=== PATIENT | female | born 1940 | race Caucasian/White ===

== ENCOUNTER 2016-05-06 07:17 | Inpatient (IN) | payer MEDICARE, OTHER ==
[2016-05-06] MEDS ORDERED: MORPHINE SULFATE 4 MG INJ IV ONE (07:54)
[2016-05-06] MEDS ORDERED: Sodium Chloride 0.9% 1000 ML 1,000 ML IV STA (07:54)
[2016-05-06] MEDS ORDERED: Zofran 4 MG/2 ML VIAL IV ONE (07:54)
[2016-05-06] MEDS ORDERED: MORPHINE SULFATE 4 MG INJ ONE (07:58)
[2016-05-06] MEDS ORDERED: Sodium Chloride 0.9% 1000 ML 1,000 ML ONE (07:58)
[2016-05-06] MEDS ORDERED: Zofran 4 MG/2 ML VIAL ONE (07:58)
[2016-05-06 08:03] LABS: Collection Type VOID
[2016-05-06 08:04] LABS: COMPLETE URINE MICROSCOPIC? YES
[2016-05-06 08:05] LABS: BASOPHIL % 0.1 % (0.0-0.4); Eosinophil % 0.1 % (0.00-5.0); Granulocytes % 73.7 % (36.0-66.0); Lymphocytes % 19.8 % (24.0-44.0); Mean Cell Volume 84.3 fl (78-100); Mean Corpuscular Hemoglobin 28.3 pg (26-32); Mean Platelet Volume 10.5 fl (6-9.5); Monocytes % 6.3 % (0.0-12.0); Platelet Count 244 K/mm3 (150-450); Red Blood Count 5.02 M/mm3 (4.1-5.4); White Blood Count 8.5 K/mm3 (4.0-10.5)
--- NOTE | 2016-05-06 08:12 | ERPHSYRPT ---
- History of Present Illness Time Seen by Provider: 05/06/16 08:09 Historian: patient Exam Limitations: no limitations Patient Subjective Stated Complaint: right flank pain since 1429 yesterday Triage Nursing Assessment: ambulated to room per self holding right flank area. skin w/d, color normal. denies any difficulty urinating, denies any bowel problems. Physician History: right flank pain since 1429 yesterday Timing/Duration: today Activities at Onset: none Quality: cramping, fullness Abdominal Pain Onset Location: flank Pain Radiation: RLQ Severity of Pain-Max: severe Severity of Pain-Current: severe Modifying Factors: Improves With: nothing Associated Symptoms: denies symptoms Previous symptoms: no prior history Allergies/Adverse Reactions: No Known Drug Allergies Allergy (Unverified 05/06/16 07:29) Home Medications: Enalapril Maleate [Vasotec] 20 mg PO BID 05/06/16 [History] Flaxseed Oil [[place]-3 Flaxseed Oil] 1,300 mg PO DAILY 05/06/16 [History] Folic Acid/Mv,Fe,Other Min [One Daily For Women Tablet] 1 each PO DAILY [History] Hydrochlorothiazide 12.5 mg PO DAILY 05/06/16 [History] Krill/Om-3/Dha/Epa/Phospho/Ast [Krill Oil 500 mg Softgel] 1 each PO DAILY [History] Metoprolol Succinate 50 mg [Toprol Xl 50 MG] 50 mg PO DAILY 05/06/16 [ History] Omeprazole 20 MG [Prilosec 20 mg] 20 mg PO DAILY 05/06/16 [History] Hx Tetanus, Diphtheria Vaccination/Date Given: No Hx Influenza Vaccination/Date Given: No Hx Pneumococcal Vaccination/Date Given: Yes - Review of Systems Constitutional: No Fever, No Chills Eyes: No Symptoms Ears, Nose, & Throat: No Symptoms Respiratory: No Cough, No Dyspnea Cardiac: No Chest Pain, No Edema, No Syncope Abdominal/Gastrointestinal: Abdominal Pain, No Nausea, No Vomiting, No Diarrhea Genitourinary Symptoms: No Dysuria, No Frequency Musculoskeletal: No Back Pain, No Neck Pain Skin: No Rash Neurological: No Dizziness, No Focal Weakness, No Sensory Changes Psychological: No Symptoms Endocrine: No Symptoms All Other Systems: Reviewed and Negative - Past Medical History Pertinent Past Medical History: Yes Cardiac History: Hypertension GI Medical History: GERD, Hernia Female Reproductive Disorders: Abnormal Uterine Bleeding, Breast Cancer - Past Surgical History Past Surgical History: Yes Female Surgical History: Hysterectomy, Other Other Surgical History: lumpectomy right breast - Social History Smoking Status: Never smoker Exposure to second hand smoke: No Drug Use: none Patient Lives Alone: Yes - Nursing Vital Signs Nursing Vital Signs: Initial Vital Signs Temperature 97.6 F Temperature Source Oral Pulse Rate 82 Respiratory Rate 20 Blood Pressure [Right Arm] 163/88 Pain Intensity 10 - Physical Exam General Appearance: no apparent distress, alert Eye Exam: PERRL/EOMI, eyes nml inspection Ears, Nose, Throat Exam: normal ENT inspection, pharynx normal, moist mucous membranes Neck Exam: normal inspection, non-tender, supple, full range of motion Respiratory Exam: normal breath sounds, lungs clear, No respiratory distress Cardiovascular Exam: regular rate/rhythm, normal heart sounds Gastrointestinal/Abdomen Exam: soft, tenderness (right flank), No mass Back Exam: normal inspection, normal range of motion, No CVA tenderness, No vertebral tenderness Extremity Exam: normal inspection, normal range of motion, pelvis stable Neurologic Exam: alert, oriented x 3, cooperative, normal mood/affect, nml cerebellar function, sensation nml, No motor deficits Skin Exam: normal color, warm, dry SpO2: 95 Oxygen Delivery: Room Air - Course Nursing assessment & vital signs reviewed: Yes Ordered Tests: Active Orders 24 hr Category Date Time Status IV Insertion STAT Care 05/06/16 07:36 Active AMYLASE Stat Lab 05/06/16 07:58 Completed CBC W DIFF Stat Lab 05/06/16 07:58 Completed CMP Stat Lab 05/06/16 07:58 Completed Lactic Acid Urgent Lab 05/06/16 07:54 Completed UA W/ MICROSCOPIC Stat Lab 05/06/16 07:58 Completed Medication Summary Generic Name Dose Route Start Last Admin Trade Name Freq PRN Reason Stop Dose Admin Sodium Chloride 1,000 mls @ 999 mls/hr 05/06/16 07:54 05/06/16 08:01 Sodium Chloride 0.9% 1000 Ml IV 05/06/16 08:54 999 mls/hr .Q1H1M STA Administration Discontinued Medications Generic Name Dose Route Start Last Admin Trade Name Freq PRN Reason Stop Dose Admin Sodium Chloride Confirm 05/06/16 07:58 Sodium Chloride 0.9% 1000 Ml Administered 05/06/16 07:59 Dose 1,000 mls @ ud .ROUTE .STK-MED ONE Morphine Sulfate 4 mg 05/06/16 07:54 05/06/16 08:01 Morphine Sulfate 4 Mg Inj IV 05/06/16 07:55 4 mg STAT ONE Administration Morphine Sulfate Confirm 05/06/16 07:58 Morphine Sulfate 4 Mg Inj Administered 05/06/16 07:59 Dose 4 mg .ROUTE .STK-MED ONE Ondansetron HCl 4 mg 05/06/16 07:54 05/06/16 08:01 Zofran 4 Mg/2 Ml Vial IV 05/06/16 07:55 4 mg STAT ONE Administration Ondansetron HCl Confirm 05/06/16 07:58 Zofran 4 Mg/2 Ml Vial Administered 05/06/16 07:59 Dose 4 mg .ROUTE .STK-MED ONE Lab/Rad Data: Laboratory Result Diagrams 05/06/16 07:58 05/06/16 07:58 Laboratory Results 05/06/16 05/06/16 05/06/16 Range/Units 07:58 07:58 07:58 WBC 8.5 (4.0-10.5) K/mm3 RBC 5.02 (4.1-5.4) M/mm3 Hgb 14.2 (12.0-16.0) gm/dl Hct 42.3 (35-47) % MCV 84.3 (78-100) fl MCH 28.3 (26-32) pg MCHC 33.6 (32-36) g/dl RDW 14.0 (11.5-14.0) % Plt Count 244 (150-450) K/mm3 MPV 10.5 H (6-9.5) fl Gran % 73.7 H (36.0-66.0) % Lymphocytes % 19.8 L (24.0-44.0) % Monocytes % 6.3 (0.0-12.0) % Eosinophils % 0.1 (0.00-5.0) % Basophils % 0.1 (0.0-0.4) % Basophils # 0.01 (0-0.4) Sodium 135 L (136-145) mEq/L Potassium 3.6 (3.5-5.1) mEq/L Chloride 96 L (98-107) mEq/L Carbon Dioxide 25.6 (21-32) mEq/L Anion Gap 17.0 H (5-15) MEQ/L BUN 17 (9-20) mg/dL Creatinine 0.75 (0.55-1.30) mg/dl Estimated GFR > 60 ML/MIN Glucose 185 H (70-110) MG/DL Lactic Acid (0.4-2.0) Calcium 9.4 (8.5-10.1) mg/dL Total Bilirubin 1.0 (0.2-1.0) mg/dL AST 18 (15-37) U/L ALT 25 (12-78) U/L Alkaline Phosphatase 106 (46-116) U/L Serum Total Protein 7.8 (6.4-8.2) gm/dL Albumin 4.4 (3.4-5.0) g/dL Amylase 43 (25-115) U/L Ur Collection Type VOID Urine Color YELLOW (YELLOW) Urine Appearance CLEAR (CLEAR) Urine pH 7.0 (5-6) Ur Specific [place] 1.025 (1.005-1.025) Urine Protein 30 (Negative) Urine Glucose (UA) NEGATIVE (NEGATIVE) mg/dL Urine Ketones NEGATIVE (NEGATIVE) Urine Nitrite NEGATIVE (NEGATIVE) Urine Bilirubin NEGATIVE (NEGATIVE) Urine Urobilinogen 0.2 (0-1) mg/dL Urine WBC (Auto) TRACE (NEGATIVE) Urine RBC (Auto) NEGATIVE (0-5) Max/ul Specimen Received 05-06-16 0803 05/06/16 Range/Units 07:54 WBC (4.0-10.5) K/mm3 RBC (4.1-5.4) M/mm3 Hgb (12.0-16.0) gm/dl Hct (35-47) % MCV (78-100) fl MCH (26-32) pg MCHC (32-36) g/dl RDW (11.5-14.0) % Plt Count (150-450) K/mm3 MPV (6-9.5) fl Gran % (36.0-66.0) % Lymphocytes % (24.0-44.0) % Monocytes % (0.0-12.0) % Eosinophils % (0.00-5.0) % Basophils % (0.0-0.4) % Basophils # (0-0.4) Sodium (136-145) mEq/L Potassium (3.5-5.1) mEq/L Chloride (98-107) mEq/L Carbon Dioxide (21-32) mEq/L Anion Gap (5-15) MEQ/L BUN (9-20) mg/dL Creatinine (0.55-1.30) mg/dl Estimated GFR ML/MIN Glucose (70-110) MG/DL Lactic Acid 1.7 (0.4-2.0) Calcium (8.5-10.1) mg/dL Total Bilirubin (0.2-1.0) mg/dL AST (15-37) U/L ALT (12-78) U/L Alkaline Phosphatase (46-116) U/L Serum Total Protein (6.4-8.2) gm/dL Albumin (3.4-5.0) g/dL Amylase (25-115) U/L Ur Collection Type Urine Color (YELLOW) Urine Appearance (CLEAR) Urine pH (5-6) Ur Specific [place] (1.005-1.025) Urine Protein (Negative) Urine Glucose (UA) (NEGATIVE) mg/dL Urine Ketones (NEGATIVE) Urine Nitrite (NEGATIVE) Urine Bilirubin (NEGATIVE) Urine Urobilinogen (0-1) mg/dL Urine WBC (Auto) (NEGATIVE) Urine RBC (Auto) (0-5) Max/ul Specimen Received - Progress Progress: improved, pain not gone completely Discussed with : Holden Pereira Will see patient in: hospital (observation) Counseled pt/family regarding: lab results, diagnosis, need for follow-up, rad results - Departure Time of Disposition: 08:41 Departure Disposition: Observation Clinical Impression: Abdominal pain in female, Gall stones Condition: Fair Critical Care Time: Yes Critical Care Time(excluding separately billable procedures): 30-74 minutes Referrals: SHEKHAR PEREIRA [Primary Care Provider] -
[2016-05-06 08:14] LABS: ALBUMIN 4.4 g/dL (3.4-5.0); ALKALINE PHOSPHATASE 106 U/L (46-116); BLOOD UREA NITROGEN 17 mg/dL (9-20); CHLORIDE 96 mEq/L (98-107); Carbon Dioxide 25.6 mEq/L (21-32); Glucose 185 MG/DL (70-110); Potassium 3.6 mEq/L (3.5-5.1); SGOT/AST 18 U/L (15-37); SGPT/ALT 25 U/L (12-78); SODIUM 135 mEq/L (136-145); Total Protein 7.8 gm/dL (6.4-8.2)
[2016-05-06 08:45] LABS: Bacteria RARE /HPF (NEGATIVE); Epithelial Cells FEW /HPF (FEW); Mucus SLIGHT /HPF (NEGATIVE); WBC 0-2 /HPF (0-5)
[2016-05-06] MEDS ORDERED: NovoLOG Insulin SQ PRN (08:52)
[2016-05-06] MEDS ORDERED: MORPHINE SULFATE 2 MG INJ IV PRN (08:52)
[2016-05-06] MEDS: Sodium Chloride 0.9% 1000 ML 1,000 ML IV SCH ×2 (09:25→20:40)
[2016-05-06] MEDS ORDERED: DILAUDID 1 MG/ML INJECTION IV SCH (11:00)
[2016-05-06] MEDS: DILAUDID 2 MG INJECTION IV PRN ×3 (11:29→20:23)
[2016-05-06] MEDS: hydroDIURIL 25 MG PO SCH (12:15)
[2016-05-06] MEDS: Protonix 40MG Tablet PO SCH (12:16)
[2016-05-06] MEDS: Toprol Xl 50 MG PO SCH (12:16)
[2016-05-06] MEDS: Vasotec 10 MG PO SCH ×2 (12:16→23:36)
[2016-05-06] MEDS: KEFZOL 1 GM/50 ML PREMIX** 50 ML IV SCH ×2 (13:18→21:59)
[2016-05-06] MEDS: Zofran 4 MG/2 ML VIAL IV PRN ×2 (15:25→23:45)
--- NOTE | 2016-05-06 19:53 | XRAY ---
Indication: Sharp right hip pain. Comparison: None AP pelvis intact with mild osteopenia and lower lumbar degenerative changes. No other bony, articular, or soft tissue abnormalities.
--- NOTE | 2016-05-06 19:58 | XRAY ---
Indication: Sharp right hip pain. Comparison: None 2 views of the right hip intact with mild osteopenia and greater trochanter spurring. No other bony, articular, or soft tissue abnormalities.
[2016-05-06] MEDS ORDERED: ENALAPRIL MALEATE 20 MG PO SCH (22:00)
[2016-05-07] MEDS: DILAUDID 2 MG INJECTION IV PRN ×4 (03:15→21:05)
[2016-05-07] MEDS: KEFZOL 1 GM/50 ML PREMIX** 50 ML IV SCH ×3 (05:32→21:08)
[2016-05-07] MEDS: Zofran 4 MG/2 ML VIAL IV PRN ×3 (05:44→21:14)
[2016-05-07] MEDS: Sodium Chloride 0.9% 1000 ML 1,000 ML IV SCH ×2 (07:41→22:20)
--- NOTE | 2016-05-07 08:21 | CONS ---
CONSULT DATE: 05/06/2016 HISTORY: The patient is a 75 year-old female with a long history of right flank pain radiating down to her deep right hip area almost a stabbing-type pain. She denies any nausea or vomiting or change in eating. She apparently had work up. She said the pain is not doing any different than when she had pain and had a CT at [facility] that showed cholelithiasis, no renal stones or ureteral obstruction. Showed some significant lumbar back changes at that time. She had smaller, tiny asymptomatic umbilical area hernia. PAST MEDICAL HISTORY: Hypertension. Breast cancer in the past. Reflux. History of hiatal hernia in the past. PAST SURGICAL HISTORY: Lumpectomy and breast cancer surgery in the past. Hysterectomy. She still has her gallbladder. MEDICATIONS: Flax seed, Enalapril for hypertension, folic acid, hydrochlorothiazide, Krill oil soft gel, metoprolol, omeprazole. ALLERGIES: NKDA. FAMILY HISTORY: Negative in regards to this specific problem. SOCIAL HISTORY: No alcohol abuse. No smoking. REVIEW OF SYSTEMS: Ten systems reviewed pertinent for the patient's severe pain radiating from flank down to the right hip area. Otherwise she is febrile, 97.6F. Vital signs are stable. Blood pressure 163/88, pulse 90. Ten systems reviewed per admission assessment and as noted above. Again she has some hypertension and she is a little bit overweight. White blood cell count 8.5, hemoglobin 14.2, PLT 244,000. Bilirubin 1.0. ALT, AST, alkaline phosphatase all within normal limits. CT scan at [facility] showed no acute changes, it showed diverticulosis without diverticulitis. She has cholelithiasis with acute cholelithiasis. She had small hiatal hernia, extensive lumbar spondylosis including central protrusion L5-S1. PHYSICAL EXAMINATION: GENERAL: No acute distress. HEENT: Sclera nonicteric. NECK: No JVD. CHEST: Equal excursion, nonlabored breathing. CVS: Regular rate and rhythm. ABDOMEN: Soft. EXTREMITIES: No edema. No cyanosis. NEURO: Alert, moving extremities grossly symmetrically. IMPRESSION: Worsening right flank pain radiating down the right hip area with some back degenerative changes and known cholelithiasis. I had a long discussion with the patient. She did have a recent fall prior to all this. I recommend checking a right hip x-ray for further evaluation and also MRI of the back to see if she has a back disc problem or protrusion causing these symptoms. She was also offered cholecystectomy given the gallstone but informed her it may or may not be the etiology of her pain. At this point she and the family want to proceed with hip x-ray and MRI. If those are negative then will offer cholecystectomy given the known cholelithiasis. Risks and benefits explained in detail but not limited to bleeding or infection, risk of trocar injury or hernia, small risk bowel, bladder or blood vessel injury, small risk of bile leak, bile duct injury, retained stone or sludge possibly requiring further procedure either open or ERCP, general risk of anesthesia, deep venous thrombosis, pulmonary embolism, pneumonia, perioperative risk of aches, pain, bloating, constipation and/or loose stools possibly chronic in nature, possibility no improvement in her symptoms of cholecystectomy. At this point she was agreeing to the plan. Will check the back and hip x-ray and then back MRI. If those are negative then proceed with cholecystectomy. If they are positive may need to get back surgeon opinion.
[2016-05-07] MEDS: hydroDIURIL 25 MG PO SCH (08:46)
[2016-05-07] MEDS: Protonix 40MG Tablet PO SCH (08:47)
[2016-05-07] MEDS: Toprol Xl 50 MG PO SCH (08:47)
[2016-05-07] MEDS: Vasotec 10 MG PO SCH ×2 (08:47→21:07)
[2016-05-07] MEDS ORDERED: NON-FORMULARY ITEM (Omeprazole 20 Mg [Prilosec 20 Mg] 20 MG) PO SCH (10:00)
[2016-05-07] MEDS ORDERED: NON-FORMULARY ITEM (Hydrochlorothiazide [Hydrochlorothiazide] 12.5 MG) PO SCH (10:00)
--- NOTE | 2016-05-07 13:12 | XRAY ---
Indication: Chronic low back and right hip pain for 6 weeks. Status post fall 2 months ago. History of breast cancer. Bilateral axial and coronal MRI hips performed using pre-and post T1 and T2 weighted sequences. Additional T2 fat sat and post T1 sagittal images obtained through the right hip. 15 cc Magnevist contrast use. Comparison: None Hips are bilaterally intact and symmetric. No acute fracture, suspicious bony lesions, bony remodeling, or evidence for avascular necrosis. Surrounding soft tissues are unremarkable. Visualized pelvic contents demonstrates tiny nonspecific pelvic fluid incompletely visualized. There is no abnormal enhancing solid/cystic mass or bone marrow. MRI lumbar spine reported separately. Impression: Partially visualized nonspecific tiny pelvic free fluid. Remaining MRI hips with and without contrast is negative.
--- NOTE | 2016-05-07 13:36 | XRAY ---
Indication: Chronic low back and right hip pain for 6 weeks. Status post fall 2 months ago. History of breast cancer. Sagittal and axial MRI lumbar spine performed using pre-and post T1 and T2 weighted sequences. 15 cc Magnevist contrast use. Comparison: None No prior lumbar exams for counting purposes. 5 lumbar segments will be assumed. Axial and both postcontrast images degraded by motion artifact. Sagittal images demonstrates moderate dextro scoliosis centered at the L3 level. Multilevel degenerative disc desiccation signal with mild L5-S1 disc space narrowing. Lesser minimal disc space narrowing of the remaining lumbar discs. Mild opposing endplate degenerative discogenic signal changes at L5-S1, [place] type II. 3-4 mm anterolisthesis of L3 on L4 on L5. No acute fracture or suspicious bony lesions. Conus medullaris terminates at the L1 level. Sagittal images through the T12-L2 disc levels demonstrates mild broad-based disc bulge at these levels minimally effacing thecal sac and producing right foraminal narrowing/stenosis. No disc herniation or canal stenosis. Axial images at the L2-L3 level demonstrates mild annular disc bulge minimally effacing the thecal sac and producing left foraminal stenosis and right foraminal narrowing without impingement. Mean AP thecal sac diameter measures 12 mm. Mild bilateral degenerative facet upper atrophy narrows the canal. At the L3-L4-L5 levels, there is mild annular disc bulge minimally effacing the thecal sac and producing left foraminal stenosis and right foraminal narrowing. There is slight impingement of the exiting left L3 and L4 nerve roots. Also transverse spinal canal narrowing due to moderate bilateral degenerative facet and ligamentum flavum hypertrophy greatest at the L4-L5 level. At the L5-S1 level, there is small left paracentral subligamentous disc herniation with disc material extending posteriorly and superiorly to the mid body of L5. Thecal sac and left L5 nerve root slightly effaced. No canal stenosis. Right foraminal stenosis with exiting right L5 nerve root impingement due to broad-based disc bulge and degenerative facet hypertrophy. Postcontrast images are negative for abnormal enhancing intra-or extra thecal mass or process. Impression: 1. Motion artifact. 2. L5-S1 degenerative disc with left paracentral subligamentous disc herniation as detailed. Subsequent bilateral L5 nerve root impingement. 3. Remaining MRI demonstrates multilevel degenerative disc disease detailed level by level. Greatest extent at L3-L5 levels where there is spinal canal narrowing with left L3/L4 nerve root impingement. 4. Contrasted exam grossly negative. 5. Incidental moderate dextro scoliosis and grade 1 spondylolisthesis of L3 on L4 on L5.
[2016-05-08] MEDS: KEFZOL 1 GM/50 ML PREMIX** 50 ML IV SCH ×2 (06:01→13:40)
[2016-05-08] MEDS: Toprol Xl 50 MG PO SCH (07:57)
[2016-05-08] MEDS: hydroDIURIL 25 MG PO SCH (07:57)
[2016-05-08] MEDS: Vasotec 10 MG PO SCH (07:57)
[2016-05-08] MEDS: Protonix 40MG Tablet PO SCH (07:57)
[2016-05-08] MEDS: Sodium Chloride 0.9% 1000 ML 1,000 ML IV SCH (08:04)
[2016-05-08] MEDS ORDERED: DECADRON 10MG INJ. IM ONE (11:00)
[2016-05-08] MEDS ORDERED: XYLOCAINE 1% HCL 20 ML MDV IJ ONE (11:00)
[2016-05-08 11:39] VITALS: BP 168/76; PULSE 70; O2SAT 96
--- NOTE | 2016-05-08 11:45 | CONS ---
CONSULT DATE: 05/08/2016 REASON FOR CONSULT: Right hip and hemipelvis pain. HISTORY: The patient has been in the hospital now initially admitted for abdominal and flank pain concentrated more over the right hemipelvis at this point. She has had MRI of the lumbar and x-ray of the right hip. Dr. Garcia has seen the patient to rule out any kind of gallbladder issues as well. On exam today the patient puts her hand over the right pelvic brim and ileum as the area of her greatest pain when she walks and transfers. She said it hurts and at times unbearable. To direct palpation appears in the soft tissue space between the rim of the ilium and lowest palpable rib bone and cartilage probably of T11 or T10 and it appears to be predominantly a soft tissue issue. X-rays and MRI's have been reviewed and are essentially noncontributory. IMPRESSION: 1) Right hemipelvis strain and soft tissue contracture external and internal obliques and transversalis musculature. 2) Consider a high lumbar radiculopathy or stenosis such as L2-L3. PLAN: I do not think there is anything too serious here, nothing that would avoid the patient to be able to go home and start on some stretches and physical therapy and soft tissue massage, TENS unit or modalities for therapy. I also put an injection which I had done on her aseptic condition with 4 cc of Decadron and 5 to 10 cc of lidocaine and/or Marcaine to the right hemipelvis, this was consented and performed without deficit. The game plan is to follow up in the next few weeks and ambulate as tolerated.
--- NOTE | 2016-05-09 12:22 | SSS ---
DISCHARGE DIAGNOSES: 1) RIGHT FLANK PAIN DUE TO DEXTROSCOLIOSIS AND PATHOLOGIC CHANGES IN THE PATIENT'S LUMBAR SPINE. 2) CHOLELITHIASIS. HISTORY: The patient is a 75 year-old white female presenting herself to [facility] Emergency Room with complaints of right flank pain. She had a CT scan there which showed cholelithiasis but it was otherwise negative. Her liver enzymes were negative. The patient did have a consultation from surgery which felt that she did not have any acute gallbladder problems. There was concern more for her back or hip. HOME MEDICATIONS: Include Vasotec 20 mg b.i.d., hydrochlorothiazide 25 mg a day, metoprolol 50 mg extended release daily, omeprazole 20 mg daily. ALLERGIES: NKDA. PHYSICAL EXAMINATION: Revealed a moderately obese elderly white female currently in no distress. The patient's initial vital signs showed temperature 97.6F oral, pulse 80, respiratory rate 20, blood pressure noted to be 128/60 on initial admission. O2 saturation 92% on room air. HEENT: Normocephalic, atraumatic. Pupils equal round reactive to light. Extraocular movements intact. Oropharynx is pink and moist. NECK: Supple without lymphadenopathy, thyromegaly or JVD. CHEST: Clear to auscultation with good air movement bilaterally. HEART: Regular rate and rhythm without murmurs, rubs or gallops. ABDOMEN: Soft, nontender, nondistended without hepatosplenomegaly or palpable masses. EXTREMITIES: Without clubbing, cyanosis or edema. NEUROLOGIC: The patient is alert and oriented x3. No focal deficits are noted. HOSPITAL COURSE: The patient was admitted to the hospital for her flank tenderness with unknown etiology of her pain. MRI did show some significant spinal canal stenosis and foraminal narrowing noted. Consultation was obtained from Dr. Barrett who did give the patient injections of steroid. The patient was feeling much better after initial stay. By the morning of 05/08/2016 she was felt to be ready for discharge home which was accomplished after her consultation from Dr. Barrett. The patient is instructed to follow up in the office in one week or call us if she has any further problems in the interim. The patient did have laboratory studies showing UA which was essentially normal other than 30 on protein. Hemoglobin A1C was 6.7. She had lactic acid of 1.7. CBC was normal with hemoglobin 14.2, white blood cell count 8,500 and PLT count 244,000. Metabolic panel with nonfasting glucose of 185, BUN 17, creatinine 0.75. Electrolytes were essentially normal as were her liver enzymes and alkaline phosphatase. The patient has been given instructions to follow up in the office in one week or to call if she has further problems in the interim.
== END 2016-05-08 15:05 | disposition home or self-care (01) | DRG 552 ==
LOC: ED 07:17 → MED SURG 08:44 → OBSVTOIN 22:11
PROVIDERS: ADMIT Family Medicine; ATTEND Family Medicine
DX: M41.86 Other forms of scoliosis, lumbar region (principal); K80.20 Calculus of gallbladder without cholecystitis without obstruction; I10 Essential (primary) hypertension; K21.9 Gastro-esophageal reflux disease without esophagitis; M25.551 Pain in right hip; K44.9 Diaphragmatic hernia without obstruction or gangrene; Z85.3 Personal history of malignant neoplasm of breast; Z79.899 Other long term (current) drug therapy
CPT/HCPCS: 36000; 36415; 72158; 72170; 73502; 73720; 80053; 81000; 82150; 82962; 83036; 83605; 85025; 96360; 96374; 96375; 99284; J0690; J1100; J1170; J2270; J2405